=== PATIENT | female | born 1935 | race Caucasian/White ===

== ENCOUNTER 2017-09-21 14:41 | Emergency (ER) | payer OTHER, MEDICARE ==
[~2017-09-21] VITALS: Ht 162.6 cm; Wt 69.9 kg
--- NOTE | 2017-09-21 15:49 | ED GENERAL ADULT ---
See Addendum History of Present Illness General Chief Complaint: General Adult Stated Complaint: SENT IN BY WALKIN FOR TINGLING IN L ARM/SHOULDER Source: patient, family Exam Limitations: no limitations Vital Signs & Intake/Output Vital Signs & Intake/Output Vital Signs Date Time Temp Pulse Resp B/P B/P Pulse O2 O2 Flow FiO2 Mean Ox Delivery Rate 09/21 2210 54 16 181/82 96 Room Air 09/21 2135 66 18 197/89 94 Room Air 09/21 2130 197/89 09/21 2130 197/89 09/21 1645 98.6 56 16 189/83 95 Room Air 09/21 1641 95 Room Air 09/21 1451 97.1 71 18 173/69 96 Room Air Allergies Coded Allergies: propoxyphene (NAUSEA 09/21/17) Uncoded Allergies: PINK (Intermediate, VOMITING 09/21/17) Triage Note: PT TO ER C/C INTERMITTENT LEFT ARM TINGLING X 1 WEEK. HX OF CVA WITH RESIDUAL RIGHT ARM PARALYSIS. DENIES HEADACHE. MILD NECK PAIN. Triage Nurses Notes Reviewed? yes Onset: Abrupt Duration: week(s): Timing: recent history HPI: 09/21/17 82-year-old female presents to the emergency department with intermittent left upper arm paresthesias. No chest pain no shortness of breath. She is status post CVA, with residual right upper extremity and right lower extremity weakness. She also has mild left facial weakness. These are old findings. Now she's been having intermittent left upper extremity paresthesias. No weakness, no slurred speech, no difficulty swallowing. (Jerrell Perez DO) Past History Travel History Traveled to [place] past 21 day No Medical History Any Pertinent Medical History? see below for history Neurological: CVA Cardiovascular: hypertension, hyperlipidemia, abdominal aortic aneurysm Influenza Vaccine: 03/22/11 Surgical History Surgical History: abdominal aneurysm repair per family Psychosocial History Who do you live with Spouse What is your primary language Slovak Tobacco Use: Quit >30 days ago Family History Hx Contributory? No (Jerrell Perez DO) Review of Systems Review of Systems Constitutional: Denies: fever. EENTM: Denies: visual changes. Respiratory: Denies: short of breath. Cardiovascular: Denies: chest pain. GI: Denies: abdominal pain. Genitourinary: Reports: no symptoms. Musculoskeletal: Reports: no symptoms. Skin: Reports: no symptoms. Neurological/Psychological: Reports: see HPI, paresthesia. Hematologic/Endocrine: Reports: no symptoms. Immunologic/Allergic: Reports: no symptoms. (Jerrell Perez DO) Physical Exam Physical Exam General Appearance: alert, awake, anxious, mild distress Head: atraumatic, normal appearance Eyes: Bilateral: normal appearance, PERRL, EOMI. Ears, Nose, Throat: normal pharynx, normal ENT inspection Neck: normal inspection, supple Respiratory: normal breath sounds, chest non-tender, no respiratory distress Cardiovascular: regular rate/rhythm, systolic murmur Gastrointestinal: soft, non-tender Back: normal range of motion Extremities: pedal edema Neurologic/Psych: awake, alert, oriented x 3, she has significant right upper extremity weakness also right lower extremity weakness. Left facial droop that is old. The left upper extremity is essentially normal. No objective weakness or sensory deficits. Skin: intact, normal color, warm/dry Core Measures ACS in differential dx? No CVA/TIA Diagnosis: No Sepsis Present: No Sepsis Focused Exam Completed? No (Jerrell Perez DO) Progress Differential Diagnoses I considered the following diagnoses in my evaluation of the patient: [Cervical radiculopathy acute coronary syndrome, TIA, CVA] Plan of Care: Orders Procedure Date/time Status Heart Healthy Diet 09/22 B Active TROPONIN LEVEL 09/21 2100 Complete EKG 09/21 2100 Active TROPONIN LEVEL 09/21 1648 Complete COMPREHENSIVE METABOLIC PANEL 09/21 1648 Complete CBC WITHOUT DIFFERENTIAL 09/21 164 Complete EKG 09/21 1536 Active Laboratory Tests 09/21/17 2142: Troponin I 0.04 09/21/17 1727: Anion Gap 14, Estimated GFR 53 L, BUN/Creatinine Ratio 26.0 H, Glucose 92, Calcium 9.7, Total Bilirubin 0.5, AST 28, ALT 22, Alkaline Phosphatase 86, Troponin I 0.03, Total Protein 7.7, Albumin 4.3, Globulin 3.4, Albumin/Globulin Ratio 1.3, CBC w Diff NO MAN DIFF REQ, RBC 3.85 L, MCV 95.7, MCH 31.5 H, MCHC 32.9 L, RDW 13.4, MPV 7.2 L, Gran % 48.5, Lymphocytes % 36.0, Monocytes % 8.2, Eosinophils % 6.8 H, Basophils % 0.5, Absolute Granulocytes 3.9, Absolute Lymphocytes 2.9, Absolute Monocytes 0.7 H, Absolute Eosinophils 0.5, Absolute Basophils 0 Initial ED EKG: NSR, nonspecific ST T wave chg, LVH Prior EKG: unchanged (Jerrell Perez DO) Diagnostic Imaging: Viewed by Me: CT Scan. Discussed w/RAD: CT Scan. Radiology Impression: 1. No acute intracranial findings. Chronic left frontal lobe infarct. 2. No acute abnormality of the cervical spine. Moderate multilevel degenerative changes. Bilateral bony neuroforaminal narrowing. (Price Dockery MD) Departure Departure Disposition: HOME OR SELF CARE Condition: Stable Clinical Impression Primary Impression: Arm paresthesia, left Secondary Impressions: Hypertension Referrals: Yuri Alonso MD (PCP/Family) Departure Forms: Customer Survey General Discharge Information Comments CT scan of the head and cervical spine showing below IMPRESSION: 1. No acute intracranial findings. Chronic left frontal lobe infarct. 2. No acute abnormality of the cervical spine. Moderate multilevel degenerative changes. Bilateral bony neuroforaminal narrowing. DICTATED BY: Deandre Jaramillo MD DATE/TIME DICTATED:09/21/171723 COATER OPERATOR INSULATION BOARD:KELSEY DATE/TIME TRANSCRIBED:09/21/171723 CONFIDENTIAL, DO NOT COPY WITHOUT APPROPRIATE AUTHORIZATION. <Electronically signed in Other Vendor System> SIGNED BY: Deandre Jaramillo MD 09/21 6466 The patient's symptoms have been ongoing for a week and a half. She has an unchanged neurological exam. We will repeat troponin and EKG and if unchanged she can follow-up with her primary care doctor. Suspect cervical radiculopathy. She is currently on Aggrenox. The patient was signed out to Dr. Dockery at 7 PM (Jerrell Perez DO) Departure Time of Disposition: 2244 (Price Dockery MD) Critical Care Note Critical Care Note Critical Care Time: non-applicable (Jerrell Perez DO)
--- NOTE | 2017-09-21 17:32 | CT SCAN REPORT ---
EXAMINATION: NONCONTRAST HEAD CT NONCONTRAST CERVICAL SPINE CT INDICATION INFORMATION: Left arm paresthesia COMPARISON: 08/09/2011 TECHNIQUE: Separate noncontrast CT examinations of the head and cervical spine were performed. Coronal and sagittal images were created for each examination at the technologist workstation. DLP: 941 mGy-cm FINDINGS: Head: There is no evidence of acute intracranial hemorrhage or territorial infarction. No abnormal mass effect or midline shift is seen. Villalobos to white matter differentiation is well preserved. No extra-axial fluid collections are identified. No hydrocephalus. Proportional prominence of the ventricles and sulcal spaces is consistent with mild volume loss. Patchy periventricular and deep white matter hypoattenuation is consistent with mild small vessel ischemic changes. There is a chronic left frontal lobe infarct with ex vacuo dilatation of the frontal horn of the left lateral ventricle. The osseous structures and soft tissues are normal. Maxillary sinus mucous retention cyst. The mastoid air cells and visualized portions of the paranasal sinuses are otherwise well aerated. Cervical spine: There is anatomic alignment of the vertebral bodies and posterior elements. The atlantoaxial and atlantooccipital articulations are intact. Vertebral body heights are maintained. There is multilevel intervertebral disc space narrowing with endplate osteophyte formation and facet arthropathy. Mild bony neuroforaminal narrowing on the left at the C5-C6 level. Mild bony neuroforaminal narrowing on the right at the C4-C5 level. No evidence of acute fracture. No prevertebral soft tissue swelling. Fibrotic changes noted at the right lung apex. The lung apices are otherwise clear. The thyroid gland is unremarkable. IMPRESSION: 1. No acute intracranial findings. Chronic left frontal lobe infarct. 2. No acute abnormality of the cervical spine. Moderate multilevel degenerative changes. Bilateral bony neuroforaminal narrowing.
[2017-09-21 17:47] LABS: ABSOLUTE BASOPHIL COUNT 0 /CUMM (0.0-0.2); ABSOLUTE EOSINOPHIL COUNT 0.5 /CUMM (0.0-0.7); ABSOLUTE GRANULOCYTE CT 3.9 /CUMM (1.4-6.5); ABSOLUTE LYMPH COUNT 2.9 /CUMM (1.2-3.4); ABSOLUTE MONOCYTE COUNT 0.7 /CUMM (0.10-0.60); BASOPHIL % 0.5 % (0.0-2.0); EOSINOPHIL % 6.8 % (0-5); GRANULOCYTE % 48.5 % (42.2-75.2); HEMATOCRIT 36.9 % (37-47); MEAN CORPUSCULAR HGB 31.5 PG (27.0-31.0); MEAN CORPUSCULAR HGB CONC 32.9 G/DL (33.0-37.0); MEAN CORPUSCULAR VOLUME 95.7 FL (81.0-99.0); MEAN PLATELET VOLUME 7.2 FL (7.4-10.4); PLATELET COUNT 282 /CUMM (130-400); RBC DISTRIBUTION WIDTH 13.4 % (11.5-14.5); RED BLOOD CELL CT 3.85 /CUMM (4.20-5.40); WHITE BLOOD CELL COUNT 7.9 /CUMM (4.8-10.8)
[2017-09-21 22:10] VITALS: BP 181/82
== END 2017-09-21 23:01 ==
LOC: ERH 14:41
PROVIDERS: Emergency Medicine
DX: R20.2 Paresthesia of skin (principal); I10 Essential (primary) hypertension
CPT/HCPCS: 93005; 93010